=== PATIENT | female | born 1995 | race Two or more races ===

== ENCOUNTER 2017-09-10 21:49 | Inpatient (IN) | payer OTHER ==
[~2017-09-10] VITALS: Ht 160 cm; Wt 82.0 kg
--- OUTSIDE RECORDS SUMMARY | ~2017-09-10 | XMS | Encounter Summary ---
Demographics + + + | Address | [address] | | | [place] [address] | + + + | Home Phone | | + + + | Preferred Language | Unknown | + + + | Marital Status | Single | + + + | Quaker Affiliation | Unknown | + + + | Race | Unknown | + + + | Ethnic Group | Unknown | + + + Author + + + | Author | [facility] | + + + | Organization | [facility] | + + + | Address | Unknown | + + + | Phone | Unavailable | + + + Support + + +---------+ + | Name | Relationship | Address | Phone | + + +---------+ + | Jaiden Dixon | ECON | Unknown | | + + +---------+ + Care Team Providers + +------+ + | Care Test Clerk Name | Role | Phone | + +------+ + | Clinic, [facility] | PCP | Unavailable | | Community | | | + +------+ + Encounter Details +--------+ + + + + | Date | Type | Department | Care Team | Description | +--------+ + + + + | 06/29/ | Hospital | [facility] | See, Medical | Abdominal pain, | | 2017 | Encounter | [facility] | Record | unspecified | | | | RADIOLOGY [address] | | abdominal location | | | | [address] | | | | | | [place] [address] | | | | | | [phone] | | | +--------+ + + + + Social History + +-------+ +--------+------+ | Tobacco Use | Types | Packs/Day | Years | Date | | | | | Used | | + +-------+ +--------+------+ | Former Smoker | | | | | + +-------+ +--------+------+ + + +---------+ + | Alcohol Use | Drinks/We | oz/Week | Comments | | | ek | | | + + +---------+ + | No | | | | + + +---------+ + + + + | Sex Assigned at | Date Recorded | | | | + + + | Not on file | | + + + as of this encounter Plan of Treatment Not on fileas of this encounter Results US kidneys and bladder (06/29/2017 9:01 AM) + + + | Specimen | Performing Laboratory | + + + | | [facility] [address] [place] [address] | + + + + + | Narrative | + + | This is a non-reportable procedure without a radiologist report and is used for | | image storage only | + + in this encounter Visit Diagnoses + + | Diagnosis | + + | Abdominal pain, unspecified abdominal location | + + Admitting Diagnoses + + | Diagnosis | + + | Abdominal pain, unspecified abdominal location | + +"
--- OUTSIDE RECORDS SUMMARY | ~2017-09-10 | XMS | Clinical Summary ---
Demographics + + + | Address | [address] | | | [place] [address] | + + + | Home Phone | | + + + | Preferred Language | Unknown | + + + | Marital Status | Single | + + + | Synagogue Affiliation | Unknown | + + + | Race | Unknown | + + + | Ethnic Group | Unknown | + + + Author + + + | Author | [facility] | + + + | Organization | [facility] | + + + | Address | Unknown | + + + | Phone | Unavailable | + + + Support + + +---------+ + | Name | Relationship | Address | Phone | + + +---------+ + | Jaiden Dixon | ECON | Unknown | | + + +---------+ + Care Team Providers + +------+ + | Care Cylinder Press Feeder Name | Role | Phone | + +------+ + | [facility] | PP | Unavailable | | Community | | | + +------+ + Allergies No Known Allergies Current Medications No known medications Active Problems Not on file Encounters +--------+ + + + + | Date | Type | Specialty | Care Team | Description | +--------+ + + + + | 06/29/ | Hospital | | See, Medical | Abdominal pain, | | 2017 | Encounter | | Record | unspecified | | | | | | abdominal location | +--------+ + + + + | 06/29/ | Ancillary | | See, Medical | Abdominal pain, | | 2017 | Orders | | Record | unspecified | | | | | | abdominal location | +--------+ + + + + from Last 3 Months Social History + +-------+ +--------+------+ | Tobacco [...] on file | | + + + Last Filed Vital Signs + + + + | Vital Sign | Reading | Time Taken | + + + + | Blood Pressure | 110/62 | 02/24/2015 1:01 AM PDT | + + + + | Pulse | 61 | 02/24/2015 1:01 AM PDT | + + + + | Temperature | 36.9 C (98.4 F) | 02/23/2015 10:48 PM PDT | + + + + | Respiratory Rate | 16 | 02/24/2015 1:01 AM PDT | + + + + | Oxygen Saturation | 100% | 02/24/2015 1:01 AM PDT | + + + + | Inhaled Oxygen | - | - | | Concentration | | | + + + + | Weight | 83 kg (183 lb) | 02/23/2015 10:48 PM PDT | + + + + | Height | 157.5 cm (5' 2.01") | 02/23/2015 10:48 PM PDT | + + + + | Body Mass Index | 33.46 | 02/23/2015 10:48 PM PDT | + + + + Plan of Treatment Not on file Results US kidneys and bladder (06/29/2017 9:01 AM) + + + | Specimen | Performing Laboratory | + + + | | [facility] [address] [place] [address] | + + + + + | Narrative | + + | This is a non-reportable procedure without a radiologist report and is used for | | image storage only | + + from Last 3 Months Insurance + +--------+ +------+-------+ + | Payer | Benefi | Subscriber | Type | Phone | Address | | | t Plan | ID | | | | | | / | | | | | | | Group | | | | | + +--------+ +------+-------+ + | MEDICAID | [place] | [id number] | | | [address] | | | [place] | | | | [place] | | | [place] | | | | [phone] | | | [place] | | | | | + +--------+ +------+-------+ + + +--------+ +--------+ + + | Guarantor Name | Accoun | Relation to | Date | Phone | Billing Address | | | t Type | Patient | of | | | | | | | | | | + +--------+ +--------+ + + | MARGARET DIXON | Person | Self [birth year] | Home: | [address] | | | al/Fam | | 1995 | [phone] [place] | | | ulysses | | | [phone] | [phone] | + +--------+ +--------+ + +
--- OUTSIDE RECORDS SUMMARY | ~2017-09-10 | XMS | Encounter Summary ---
Demographics + + + | Address | [address] | | | [place] [address] | + + + | Home Phone | | + + + | Preferred Language | Unknown | + + + | Marital Status | Single | + + + | Episcopalian Affiliation | Unknown | + + + | Race | Unknown | + + + | Ethnic Group | Unknown | + + + Author + + + | Author | [facility] | + + + | Organization | [facility] | + + + | Address | Unknown | + + + | Phone | Unavailable | + + + Support + + +---------+ + | Name | Relationship | Address | Phone | + + +---------+ + | Jaiden Dixon | ECON | Unknown | | + + +---------+ + Care Team Providers + +------+ + | Care Construction Supervisor Name | Role | Phone | + +------+ + | Clinic, [facility] | PCP | Unavailable | | Community | | | + +------+ + Encounter Details +--------+ + + + + | Date | Type | Department | Care Team | Description | +--------+ + + + + | 06/29/ | Ancillary | [facility] | See, Medical | Abdominal pain, | | 2017 | [facility] | [facility] | Record | unspecified | | | | Ultrasound [address] | | abdominal location | | | [address] | | | | | | [place] [address] | | | | | | [phone] | | | +--------+ + + + [...] Laboratory | + + + | | [facility] [address] [place] [address] | + + + + + | Narrative | + + | This is a non-reportable procedure without a radiologist report and is used for | | image storage only | + + in this encounter Visit Diagnoses + + | Diagnosis | + + | Abdominal pain, unspecified abdominal location | + +"
[2017-09-10] MEDS ORDERED: FLOMAX0.4 MG PO (23:56)
[2017-09-10] MEDS ORDERED: PRENATAL VITAM1 EAC7 PO (23:56)
--- NOTE | 2017-09-11 07:55 | NUR ---
09/11/17 Nuris Worley 1873-PATIENT ARRIVED TO PACU AWAKE AND ALERT DENIES PAIN OR NAUSEA. FAMILY AT BEDSIDE. RA O2 SAT 98% FUNDUS MIDLINE UMBILICUS NO DRAINAGE NOTED ELENA PAD IN PLACE [id number] ASSISTING MOM WITH .
--- NOTE | 2017-10-09 10:43 | OR ---
[facility] [place] [facility] [address] [place], [place] [address] Signed DATE OF OPERATION: 09/11/2017 SURGEON: Laura Marie DO PREOPERATIVE DIAGNOSES: 1. Intrauterine at 40 weeks and two days gestation. 2. intolerance to labor. 3. Persistent occiput position. 4. Remote to delivery. POSTOPERATIVE DIAGNOSES: 1. Intrauterine at 40 weeks and two days gestation. 2. intolerance to labor. 3. Persistent occiput position. 4. Remote to delivery. PROCEDURES PERFORMED: Primary low transverse section. ANESTHESIA: Epidural. VP RESPIRATORY: Dale Candelaria MD ESTIMATED BLOOD LOSS: 500 mL. COMPLICATIONS: None. FINDINGS: Viable male , 8 pounds 5 ounces, born in the ROP position. Apgars 6 and 8 at 1 and 5 minutes respectively. Normal uterus, tubes, and ovaries. Hemostasis at the end of procedure. INDICATIONS: Ms. Paredes is a pleasant 21-year-old G2, P0, female who presented to Labor and Delivery complaining of spontaneous rupture of membranes, and contractions increasing in frequency and intensity. She was admitted to Labor and Delivery and an epidural was Electronically Signed By: LAURA MARIE DO 10/09/17 1043 PATIENT NAME: MARGARET PAREDES OPERATIVE REPORT DATE OF : [birth year] REPORT #: [id number] PHYSICIAN: LAURA MARIE DO PCP: MARIE,LAURA D DO REPORT IS CONFIDENTIAL AND NOT TO BE RELEASED WITHOUT AUTHORIZATION [facility] [address], [place] [address] Signed kindly placed by Anesthesia. The patient then developed recurrent late decelerations that improved with IV fluid bolus, oxygen, maternal repositioning. Ephedrine 10 mg IV was also given, which improved heart tracing. The patient made no exchange specialist several hours, and IUPC and scalp electrode were placed. Contractions were noted to be nearly adequate and Pitocin was started. Soon after Pitocin was started the patient again developed recurrent late deceleration. Decision was made to proceed with primary low-transverse section. Risks, benefits, alternatives were discussed in detail with the patient. Patient understands and wishes to proceed with procedure. TECHNIQUE: The patient was taken the operating room where a time-out was performed to confirm correct patient, correct procedure. Epidural anesthesia was bolused and found to be adequate. The patient was prepped and draped in the supine position with a bump under the right hip. ICP's were on and running. Ancef 2 g preoperatively were given, and no heparin was indicated based on preemie score. heart rate was noted to decelerate to the 70s immediately preoperatively, and the patient was quickly prepped, and draped, and a Pfannenstiel skin incision was made using a surgical scalpel. The incision was carried down to and through the fascia in the midline and the fascial incision was extended bilaterally using sharp dissection. The underlying rectus muscles were dissected bluntly, and sharply, and divided in the midline. The peritoneum was grasped with hemostat, elevated, and incised sharply. Peritoneal incision was extended cephalad caudad using blunt and sharp dissection. The fundus was palpated and no intraabdominal adhesions were noted. The lower uterine segment was identified, and appears normal. The Deshawn self retractor was placed, and the lower uterine segment incised using a surgical scalpel. Clear amniotic fluid was noted, and hysterotomy was extended bilaterally using blunt dissection. ROP position was noted, and the head was elevated into the abdomen, and delivered with the assistance of fundal pressure. The remainder of the delivered easily without difficulty. No nuchal cord was identified. Upon delivery, the was vigorous, and cried, and oral nasopharynx were bulb suctioned. Cord was doubly clamped, and cut, and their portion of the cord was reserved for cord gases. Cord blood was then obtained for routine analysis. The placenta was then expressed intact with a centrally inserted three-vessel cord without obvious abnormality. Pitocin was then given to enhance uterine involution and bleeding was minimal. The uterine cavity was cleared of clots, and remaining products of conception and hysterotomy was repaired using 0-Vicryl in a running locked suture. A 2nd vertical imbricating suture, or stitch of 0-Vicryl was applied with good imbrication and hemostasis. A small amount of oozing was noted in the midline. This was made hemostatic with a 0-Vicryl stitch in a ychyam-zo-skfag configuration. The pelvis was irrigated, and found to be hemostatic. Normal tubes, and ovaries were identified bilaterally. The self retractor was removed, and the lower segment again identified and found to be hemostatic. A cell sheet was applied to the lower uterine segment, and peritoneum was reapproximated using 3-0 Vicryl in a running nonlocked stitch. The Electronically Signed By: LAURA MARIE DO 10/09/17 1043 PATIENT NAME: MARGARET PAREDES OPERATIVE REPORT DATE OF : [birth year] REPORT #: [id number] PHYSICIAN: LAURA MARIE DO PCP: LAURA MARIE DO REPORT IS CONFIDENTIAL AND NOT TO BE RELEASED WITHOUT AUTHORIZATION [place] [id number] Signed rectus muscles were then loosely reapproximated using 0-Vicryl in interrupted simple sutures of 0-Vicryl. The rectus muscle was noted to be hemostatic, and a cell powder was applied to the rectus. Fascia was then reapproximated using 0-Vicryl in a running nonlocked stitch. Some oozing was noted in the subcu space, and this was made hemostatic with a combination of Bovie electrocautery, and the Obey powder. After excellent hemostasis was achieved the subcu was reapproximated using 2-0 Vicryl in a running nonlocked stitch. Skin was then reapproximated using surgical justin with good hemostasis and cosmesis. The uterus was then Crede'd for scant amount of bleeding and the patient was taken to the PACU in good and stable condition. Sponge, needle, and instrument count was correct x2 at the end of the procedure. Dr. Candelaria was present and participated in all portions of the procedure. Laura Marie DO JDW/MODL /[id number] Copies: ~ Electronically Signed By: LAURA MARIE DO 10/09/17 1043 PATIENT NAME: BETERAN,MARGARET OPERATIVE REPORT DATE OF : [birth year] REPORT #: [id number] PHYSICIAN: LAURA MARIE DO PCP: LAURA MARIE DO REPORT IS CONFIDENTIAL AND NOT TO BE RELEASED WITHOUT AUTHORIZATION
== END 2017-09-13 18:00 | disposition home or self-care (01) | DRG 766 ==
LOC: FBCO 21:49 → FBC 21:52
PROVIDERS: ADMIT Obstetrics & Gynecology
PROC: 10D00Z1 Extraction of Products of Conception, Low, Open Approach (ICD-10-PCS; principal; 2017-09-11 07:00)
DX: O76 Abnormality in fetal heart rate and rhythm complicating labor and delivery (principal); O42.12 Full-term premature rupture of membranes, onset of labor more than 24 hours following rupture; Z3A.40 40 weeks gestation of pregnancy; Z37.0 Single live birth; O32.8XX0 Maternal care for other malpresentation of fetus, not applicable or unspecified
CPT/HCPCS: 01960; 01961; 36415; 82803; 85027; C1763; J1885; J2274; J2405; J2590; J3010; J3105; J7120